=== PATIENT | female | born 1995 | race Caucasian/White ===

== ENCOUNTER 2019-05-16 13:38 | Emergency (ER) | payer OTHER ==
[2019-05-16 15:09] LABS: URINE PH (Dip) POC 6.5 (5.0-8.5)
[2019-05-16 15:09] LABS: URINE BLOOD (Dip) POC Negative (NEGATIVE); URINE GLUCOSE (Dip) POC Negative (NEGATIVE); URINE KETONES (Dip) POC Trace (NEGATIVE); URINE LEUKOCYTE EST (Dip) POC Negative (NEGATIVE); URINE NITRITE (Dip) POC Negative (NEGATIVE); URINE TOTAL PROTEIN POC 1+ (NEGATIVE)
== END 2019-05-16 16:07 | disposition home or self-care (01) ==
LOC: FTE 13:38
DX: R10.84 Generalized abdominal pain (principal)
CPT/HCPCS: 81003; 81025; 99283